=== PATIENT | female | born 1955 | race Caucasian/White ===

== ENCOUNTER 2022-02-26 02:13 | Observation (INO) ==
[2022-02-26] MEDS ORDERED: Nitroglycerin 0.4 MG TAB.SUBL SL PRN (02:44)
[2022-02-26] MEDS ORDERED: Aspirin 325 MG TABLET PO ONE (03:06)
[2022-02-26 03:12] LABS: Basophils % 0.4 %; Eosinophils # 0.3 K/mcL (0.0-0.6); Eosinophils % 2.6 %; Hematocrit 39.6 % (35.3-44.9); Hemoglobin 13.4 g/dL (11.5-15.4); Immature Granulocytes % 0.5 % (0-4); Lymphocytes % 29.5 %; Mean Corpuscular HGB Conc 33.8 g/dL (31.6-35.5); Mean Corpuscular Volume 85.7 fL (83.0-100.0); Mean Platelet Volume 9.2 fL (9.4-12.4); Monocytes # 0.9 K/mcL (0.0-1.3); Monocytes % 8.7 %; Platelet Count 325 K/mcL (140-400); Red Blood Count 4.62 M/mcL (3.82-4.97); Red Cell Distribution Width 12.9 % (11.5-14.5); Segmented Neutrophils % 58.3 %; White Blood Count 10.3 K/mcL (4.3-11.1)
[2022-02-26 03:31] LABS: Alanine Aminotransferase 20 Units/L (7-52); Albumin 4.1 g/dL (3.5-5.7); Albumin/Globulin Ratio 1.3 (1.1-2.2); Alkaline Phosphatase 71 Units/L (34-104); Aspartate Amino Transferase 13 Units/L (13-39); BUN/Creatinine Ratio 22 (6-26); Bilirubin,Direct 0.1 mg/dL (0.0-0.2); Bilirubin,Indirect 0.4 mg/dL (0.0-1.0); Bilirubin,Total 0.5 mg/dL (0.3-1.0); Blood Urea Nitrogen 15 mg/dL (8-23); Calcium 9.1 mg/dL (8.6-10.3); Carbon Dioxide 26 mEq/L (23-29); Chloride 104 mEq/L (98-107); Globulin 3.1 g/dL (2.4-3.5); Glucose 137 mg/dL (70-105); Magnesium 1.8 mg/dL (1.6-2.6); Osmolality,Calculated 291 (280-300); Potassium 3.9 mEq/L (3.5-5.1); Sodium 139 mEq/L (136-145); Total Protein 7.2 g/dL (6.4-8.9); eGFR For African Americans > 60 (> 60); eGFR For Non-African Americans > 60 (> 60)
[2022-02-26 03:34] LABS: Troponin I < 0.03 ng/mL (< 0.04)
[2022-02-26] MEDS ORDERED: Ondansetron 4 MG/2 ML VIAL IVP PRN (05:37)
[2022-02-26] MEDS ORDERED: Acetaminophen 325 MG TABLET PO PRN (05:37)
[2022-02-26] MEDS ORDERED: Naloxone 0.4 MG/ML INJ IVP PRN (05:37)
[2022-02-26] MEDS ORDERED: Perflutren Lipid Microsphere 1.3 ML in 0.9 % Sodium Chloride 8.7 ML IVP PRN (05:42)
[2022-02-26 06:14] LABS: Chol/HDL Ratio 3.2 (0-4.9); Cholesterol 120 mg/dL (< 200); HDL Cholesterol 37 mg/dL (40-59); LDL Cholesterol,Calculated 46 mg/dL (< 100); Triglycerides 183 mg/dL (< 150)
[2022-02-26 06:16] LABS: Thyroid Stimulating Hormone 2.353 mcIU/mL (0.340-5.600)
[2022-02-26] MEDS ORDERED: Regadenoson 0.4 MG/5 ML SYRINGE IVP ONE (07:14)
[2022-02-26 08:37] LABS: Estimated Average Glucose 169 mg/dl; Hemoglobin A1C 7.5 %
[2022-02-26 15:26] VITALS: BP 147/85; PULSE 99; TEMP 98.6; O2SAT 90
[2022-02-27] MEDS ORDERED: Aspirin 81 MG TAB.CHEW PO SCH (09:00)
[2022-02-27] MEDS ORDERED: Metoprolol XL (24 HR) Succ 25 MG TAB.ER.24H PO SCH (09:00)
== END 2022-02-26 17:45 | disposition home or self-care (01) ==
LOC: 2ANU 02:13 → EMEROOARM 02:13 → 2ANU 06:25
PROVIDERS: ADMIT Student in an Organized Health Care Education/Training Program; ATTEND Student in an Organized Health Care Education/Training Program